=== PATIENT | female | born 1970 ===

== ENCOUNTER 2025-05-16 02:51 | Emergency (ER) | payer OTHER, SELFPAY ==
--- NOTE | ~2025-05-16 | CT_ITS ---
CLINICAL HISTORY: Stroke Protocol CT angiography head and neck with contrast. 3D Postprocessing. Comparison: None provided Findings: Aortic arch and cervical great vessels are patent with no aneurysm, dissection, hemodynamically significant stenoses, or occlusion. Occluded M1 segment of the right middle cerebral artery, Axial image 109, series 12. There is distal reconstitution of the M2 and M3 segments. Intracranial arteries are otherwise patent. No aneurysm, dissection, hemodynamically significant stenoses, or occlusion. No abnormal intracranial enhancement. The visualized thyroid gland is unremarkable. No cervical mass or fluid collection. Lung apices clear. Incidentally, there are findings of tracheobronchomalacia. No acute fracture. IMPRESSION: Occluded M1 segment of the right middle cerebral artery. Recommend neuro interventional consultation. Otherwise patent remainder of the intracranial and neck arterial circulation. This document has been electronically signed by: Abel Valencia MD on 05/16/2025 04:28:24
--- NOTE | ~2025-05-16 | CT_ITS ---
CLINICAL HISTORY: Stroke Protocol - LT SIDE WEAKNESS, AMS, PT UNABLE TO HOLD STILL FOR IMAGING CT head without contrast Comparison: None provided Findings: No intra-axial mass, midline shift, hydrocephalus, or acute hemorrhage. No significant atrophy-like change or white matter disease. There is a mucous retention cyst in the left maxillary sinus. The remainder of the sinuses are clear. Mastoid air cells are clear. The orbits are within normal limits. No skull fracture. IMPRESSION: 1. No acute intracranial findings. This document has been electronically signed by: Abel Valencia MD on 05/16/2025 03:45:51
--- NOTE | 2025-05-16 03:01 | ECG_ITS ---
Test Reason : stroke protocol Blood Pressure : */* mmHG Vent. Rate : 97 BPM Atrial Rate : 97 BPM P-R Int : 188 ms QRS Dur : 90 ms QT Int : 392 ms P-R-T Axes : 61 8 66 degrees QTcB Int : 497 ms Normal sinus rhythm Nonspecific T wave abnormality Prolonged QT Abnormal ECG No previous ECGs available Referred By: Gumaro Lora Electronically Signed By: BISI STEVEN MD
[2025-05-16 03:02] VITALS: BMI 35.7
[2025-05-16 03:05] VITALS: BP 151/92; PULSE 100; RESP 15; TEMP 36.2; O2SAT 100; BMI 35.7
[2025-05-16 03:11] LABS: Prothrombin Time Whole Bld POC 12.6 sec (11.1-13.5); ~PT, ~INR - Anti Coag Clinic 1.1 (0.9-1.1)
[2025-05-16 03:13] LABS: Glucose, Whole Blood 130 mg/dL (60-115)
--- NOTE | 2025-05-16 03:29 | ED_ITS ---
HPI - Neuro Symptoms/Deficit General Chief Complaint: Stroke Stated Complaint: AMS/ jerky movements Time Seen by Provider: 05/16/25 03:04 Source: family and EMS Mode of arrival: EMS Limitations: altered mental status History of Present Illness ED Provider: Gumaro SZYMANSKI HPI Narrative: 54-year-old female presenting via EMS for evaluation of acute change in mental status. The patient is nonverbal upon arrival to the ED, unable to provide a reliable HPI. The patient's is present in the ED and reports patient was last seen well at her baseline at 00:40 when they were walking down the hallway to go to bed. The patient reportedly then got up to attempt to a crying baby, family recognized baby was still crying and went to check on patient, found the patient altered with reported slurred incomprehensible speech and activated EMS. EMS reports patient has been nonverbal since their arrival. Related Data Allergies Allergy/AdvReac Type Severity Reaction Status Date / Time meperidine (From Demerol) Allergy Unknown Verified 05/16/25 04:01 Review of Systems 2 Review of Systems: Yes all other systems are reviewed and are negative [facility] Social History Social History Use of substances other than those prescribed or required for medical reasons: No Any prior treatment program specific to substance use: No Advance Directives: No Advance Directives Information Provided: Yes Physical Exam 2 Vital Signs: Vital Signs: Last Vital Signs Temp 97.2 F 05/16/25 05:00 Pulse 91 05/16/25 05:00 Resp 15 05/16/25 05:00 BP 140/87 H 05/16/25 05:00 Pulse Ox 100 05/16/25 05:00 O2 Del Method Room Air 05/16/25 05:00 O2 Flow Rate 2 05/16/25 05:00 BMI result Body Mass Index 35.7 CONSTITUTIONAL: The patient appears acutely ill. Vital signs as documented. HEAD: Atraumatic, normocephalic. EYES: EOMs do not cross midline to the left, but no forced deviation/gaze, pupils equal and appropriately reactive to light and accommodation, conjunctiva clear, no exudate. ENT: Nares patent, no discharge. Airway patent, no audible stridor, visible mucosa is pink and moist without noted lesions. NECK: Trachea is midline, no obvious masses or gross abnormalities. CHEST: Symmetric movement, normal appearance. LUNGS: LS present and CTAB, no w/r/r. Non-labored work of breathing. CARDIAC: Regular Rhythm, S1/S2 appreciated, no murmurs, rubs or gallops. ABDOMEN: Abdomen soft no palpable masses or organomegaly. : Deferred. EXTREMITIES: No obvious acute injury or deformity noted. NEURO: Please refer to NIH stroke scale. Patient is nonverbal. SKIN: Warm, dry, color appropriate, normal turgor. No rashes noted. Medications Administered Discontinued Medications Generic Name Dose Route Start Last Admin Trade Name Freq PRN Reason Stop Dose Admin Iohexol 75 ml 05/16/25 03:51 05/16/25 03:51 Iohexol 350 Mg/Ml 100 Ml Infus..Btl IV 05/16/25 03:52 75 ml ONCE ONE Administration Ketamine HCl 46 mg 05/16/25 03:23 05/16/25 03:31 Ketamine Hcl/Ns 50 Mg/5 Ml Syringe IVPUSH 05/16/25 03:24 46 mg ONCE ONE Administration Ketamine HCl 50 mg 05/16/25 03:36 05/16/25 03:40 Ketamine Hcl/Ns 50 Mg/5 Ml Syringe IVPUSH 05/16/25 03:37 50 mg ONCE ONE Administration Ondansetron HCl 4 mg 05/16/25 03:28 05/16/25 03:31 Ondansetron Hcl 4 Mg/2 Ml Vial IVPUSH 05/16/25 03:29 4 mg ONCE ONE Administration Tenecteplase 24 mg 05/16/25 04:06 05/16/25 04:17 Tenecteplase 50 Mg/10 Ml Kit IVPUSH 05/16/25 04:07 24 mg ONCE ONE Administration Medical Decision Making Medical Decision Making MDM Narrative: 3:16 AM 05/16/2025 (Branden SZYMANSKI): 54-year-old female presenting via EMS for evaluation of acute change in mental status. The patient is nonverbal upon arrival to the ED, unable to provide a reliable HPI. The patient's is present in the ED and reports patient was last seen well at her baseline at 00:40 when they were walking down the hallway to go to bed. The patient reportedly then got up to attempt to a crying baby, family recognized baby was still crying and went to check on patient, found the patient altered with reported slurred incomprehensible speech and activated EMS. EMS reports patient has been nonverbal since their arrival. On exam patient appears to EOMs with inability to cross midline to the left, but no forced deviation to the right, there is right facial droop sparing the forehead, there is also flaccid left upper extremity without responsive to painful stimuli, left lower extremity demonstrates reflexive decorticate movement with painful stimuli, positive Babinski on left, patient's right upper and lower extremities demonstrate purposeful movement, however patient is globally aphasic. Stroke protocol activated and patient has been sent for CT dry scan. Of note the patient's denies any anticoagulation, history of GI bleed, recent blunt head trauma, car accident, or fall, history of previous stroke, or history of alcohol or substance abuse. Patient reportedly has a history of hyperlipidemia and hypertension. 3:30 AM 05/16/2025 (Branden SZYMANSKI): CT imaging was delayed by patient need for sedation x2. 3:52 AM 05/16/2025 (Branden SZYMANSKI): Patient has dry CT shows no evidence of acute intracranial hemorrhage. We will discuss TNK risks and benefits with and if amenable we will contact stroke Neurology. 4:11 AM 05/16/2025 (Branden SZYMANSKI): Case discussed with stroke neurologist Dr. Roberts, Dr. Roberts recommends administration of TNK given stroke severity. Patient's has been notified of risks and recommendation for TNK, patient's agreed to administer TNK. Patient will receive 24 mg TNK. 4:17 AM 05/16/2025 (Branden SZYMANSKI): TNK administered. 4:30 AM 05/16/2025 (Branden SZYMANSKI): [facility] called in with a critical finding on CTA, CTA shows large vessel occlusion of M1 segment of the right MCA, otherwise patent exam of the intracranial and neck arterial circulation. We will contact [facility] interventional Neurology. 4:32 AM 05/16/2025 (Branden SZYMANSKI): Repeat NIH stroke scale s/p TNK is unchanged, stroke scale scores at 20. 4:44 AM 05/16/2025 (Branden SZYMANSKI): Spoke with Dr. Ham from [facility] interventional Neurology who accepted the patient for transfer to the [facility] ED due to the presence of LVO. Ambulance has been requested for ALS transfer. At this time patient continues to protect her airway with adequate ventilation and SpO2 of 99% on 2 L nasal cannula. The patient does not require intubation/stabilization of airway prior to transfer. Admission/Observation Consideration of admission/observation: Escalation of care including admission/observation considered Consult Healthcare Provider Management of the patient was discussed with: [employer] Consultant Lab Data MDM Lab Attestation statement: I reviewed the patient's lab results. 05/16/25 03:20 05/16/25 03:20 Labs: Lab Results 05/16/25 05/16/25 05/16/25 Range/Units 03:02 03:04 03:20 WBC 9.1 (4.8-10.8) X10*3/uL RBC 4.61 (4.20-5.50) X10*6/uL Hgb 12.9 (12.0-16.0) g/dl Hct 39.0 (37.0-47.0) % MCV 84.6 (80.0-98.0) fL MCH 28.0 (27.0-33.0) pg MCHC 33.1 (31.0-35.0) g/dl RDW 12.7 (11.0-16.0) % Plt Count 178 (160-400) X10*3/uL MPV 11.7 (9.4-12.3) fL Immature Gran % (Auto) 0.4 (0.0-0.4) % Neut % (Auto) 40.8 L (45-73) % Lymph % (Auto) 45.5 H (20-40) % [place] % (Auto) 9.9 (2-11) % Eos % (Auto) 2.4 (0-4) % Baso % (Auto) 1.0 (0-2) % Lymph # (Auto) 4.1 (1.2-4.9) X10*3/uL [place] # (Auto) 0.9 (0.1-1.2) X10*3/uL Eos # (Auto) 0.2 (0.0-0.4) X10*3/uL Baso # (Auto) 0.1 (0.0-0.2) X10*3/uL Abs Immat Gran (auto) 0.04 H (0.00-0.03) X10*3/uL Absolute Neuts (auto) 3.7 (2.0-8.3) x10*3/uL Absolute Nucleated RBC 0.000 (0.0-0.012) X10*3/uL Nucleated RBC % (auto) 0.0 (0.0-0.2) /100WBC PT (11.2-13.5) SEC Whole Blood PT 12.6 (11.1-13.5) sec INR (0.9-1.1) Whole Blood INR 1.1 (0.9-1.1) APTT (26.7-34.1) SEC Sodium 142 (135-145) mmol/L Potassium 3.8 (3.3-5.1) mmol/L Chloride 106 (96-108) mmol/L Carbon Dioxide 27 (22-29) mmol/L Anion Gap 13 (12-20) BUN 27 H (9-16) mg/dL Creatinine 1.04 (0.5-1.4) mg/dL Estim Creat Clear Calc 68.1 Estimated GFR 55 POC Glucose 130 H (60-115) mg/dL Random Glucose 127 H (60-115) mg/dL Lactic Acid (0.5-2.0) mmol/L Calcium 9.6 (8.4-10.2) mg/dL Magnesium 2.4 (1.6-2.6) mg/dL Troponin I High Sens < 2.7 (<3.5-17.0) ng/L Triglycerides 126 (<150) mg/dL Cholesterol 274 H (<200) mg/dL LDL Cholesterol, Calc 201 H (<100) mg/dL HDL Cholesterol 48 (>40) mg/dL Lipase 21 (8-78) U/L Salicylates (15-30) mg/dL Acetaminophen (<30) mcg/mL Ethyl Alcohol < 10 mg/dL 05/16/25 Range/Units 03:51 WBC (4.8-10.8) X10*3/uL RBC (4.20-5.50) X10*6/uL Hgb (12.0-16.0) g/dl Hct (37.0-47.0) % MCV (80.0-98.0) fL MCH (27.0-33.0) pg MCHC (31.0-35.0) g/dl RDW (11.0-16.0) % Plt Count (160-400) X10*3/uL MPV (9.4-12.3) fL Immature Gran % (Auto) (0.0-0.4) % Neut % (Auto) (45-73) % Lymph % (Auto) (20-40) % [place] % (Auto) (2-11) % Eos % (Auto) (0-4) % Baso % (Auto) (0-2) % Lymph # (Auto) (1.2-4.9) X10*3/uL [place] # (Auto) (0.1-1.2) X10*3/uL Eos # (Auto) (0.0-0.4) X10*3/uL Baso # (Auto) (0.0-0.2) X10*3/uL Abs Immat Gran (auto) (0.00-0.03) X10*3/uL Absolute Neuts (auto) (2.0-8.3) x10*3/uL Absolute Nucleated RBC (0.0-0.012) X10*3/uL Nucleated RBC % (auto) (0.0-0.2) /100WBC PT 12.9 (11.2-13.5) SEC Whole Blood PT (11.1-13.5) sec INR 1.1 (0.9-1.1) Whole Blood INR (0.9-1.1) APTT 26.9 (26.7-34.1) SEC Sodium (135-145) mmol/L Potassium (3.3-5.1) mmol/L Chloride (96-108) mmol/L Carbon Dioxide (22-29) mmol/L Anion Gap (12-20) BUN (9-16) mg/dL Creatinine (0.5-1.4) mg/dL Estim Creat Clear Calc Estimated GFR POC Glucose (60-115) mg/dL Random Glucose (60-115) mg/dL Lactic Acid 1.3 (0.5-2.0) mmol/L Calcium (8.4-10.2) mg/dL Magnesium (1.6-2.6) mg/dL Troponin I High Sens (<3.5-17.0) ng/L Triglycerides (<150) mg/dL Cholesterol (<200) mg/dL LDL Cholesterol, Calc (<100) mg/dL HDL Cholesterol (>40) mg/dL Lipase (8-78) U/L Salicylates < 5.0 L (15-30) mg/dL Acetaminophen < 3 (<30) mcg/mL Ethyl Alcohol mg/dL Independent Interpretation I performed an independent interpretation of an: EKG (EKG shows sinus rhythm with a rate of 97, no evidence of acute ischemia, no ST elevation, no ectopy. QTC mildly prolonged at 497. No old for comparison.) Radiology Impression Discussion of test interpretation with radiology: I have reviewed the radiologist's reading. Radiologist Impression: CT head without contrast Comparison: None provided Findings: No intra-axial mass, midline shift, hydrocephalus, or acute hemorrhage. No significant atrophy-like change or white matter disease. There is a mucous retention cyst in the left maxillary sinus. The remainder of the sinuses are clear. Mastoid air cells are clear. The orbits are within normal limits. No skull fracture. IMPRESSION: 1. No acute intracranial findings. This document has been electronically signed by: Abel Valencia MD on 05/16/2025 03:45:51 CT angiography head and neck with contrast. 3D Postprocessing. Comparison: None provided Findings: Aortic arch and cervical great vessels are patent with no aneurysm, dissection, hemodynamically significant stenoses, or occlusion. Occluded M1 segment of the right middle cerebral artery, Axial image 109, series 12. There is distal reconstitution of the M2 and M3 segments. Intracranial arteries are otherwise patent. No aneurysm, dissection, hemodynamically significant stenoses, or occlusion. No abnormal intracranial enhancement. The visualized thyroid gland is unremarkable. No cervical mass or fluid collection. Lung apices clear. Incidentally, there are findings of tracheobronchomalacia. No acute fracture. IMPRESSION: Occluded M1 segment of the right middle cerebral artery. Recommend neuro interventional consultation. Otherwise patent remainder of the intracranial and neck arterial circulation. This document has been electronically signed by: Abel Valencia MD on 05/16/2025 04:28:24 External Record Review External record reviewed: Outpatient record Attestation Attending Attestation: I personally evaluated this patient with the [facility] and performed a substantive portion of the visit including all aspects of the medical decision making. ?Reviewed and agree with documented PA assessment and plan. Patient will be transferred to [facility] for neuro interventional treatment for right M1 MCA embolic stroke status post TNK administration.? Patient remains hemodynamically stable, resting and comfortable at this time. NIH Stroke Scale Time: 03:30 Level of Consciousness: Responds only with reflex motor or autonomic effects, or unresponsive Level of Consciousness Questions: Answers neither question correctly Level of Consciousness Commands: Performs neither task correctly Best Gaze: Partial gaze palsy Visual: No visual loss Facial Palsy: Minor paralyis Motor Arm (Right): No drift Motor Arm (Left): No movement Motor Leg (Right): No drift Motor Leg (Left): Some effort against gravity Limb Ataxia: Absent Sensory: Normal Best Language: Mute, global aphasia Dysarthia: Severe dysarthria Extinction and Inattention: No abnormality Score: 20 Critical Care Time Critical Care Time Critical Care Time: Yes Total Critical Care Time: 90 Attestation: Time is exclusive of separately billable procedures. Time includes: direct patient care, patient reassessment, coordination of patient care, interpretation of data (laboratory data, pulse oximetry, arterial blood gases and chest xrays), review of patient's medical records, medical consultation and documentation of patient care. Procedures excluded from critical care time: central intravenous line placement and electrocardiography. Discharge Plan Discharge Clinical Impression: Acute ischemic right MCA stroke Patient Disposition: [facility] Transfer Details: [facility] ER, accepting MD Dr. Ham (Interventional Neurology) Discharge Date/Time: 05/16/25 06:26 Print Language: [place]
[2025-05-16 03:31] LABS: MANUAL DIFF FLAG NO
[2025-05-16] MEDS: Ketamine HCl/NS 50 MG/5 ML SYRINGE 46 MG IVPUSH (03:31)
[2025-05-16 03:34] LABS: Hematocrit 39.0 % (37.0-47.0); Hemoglobin 12.9 g/dl (12.0-16.0); Imm Gran Abs Auto 0.04 X10*3/uL (0.00-0.03); Imm Gran Pct Auto 0.4 % (0.0-0.4); Lymphocytes Absolute Auto 4.1 X10*3/uL (1.2-4.9); Mean Corpuscular HGB Conc 33.1 g/dl (31.0-35.0); Mean Corpuscular Hemoglobin 28.0 pg (27.0-33.0); Mean Corpuscular Volume 84.6 fL (80.0-98.0); NRBC Abs Auto 0.000 X10*3/uL (0.0-0.012); NRBC Pct Auto 0.0 /100WBC (0.0-0.2); Platelet Count 178 X10*3/uL (160-400); Red Blood Count 4.61 X10*6/uL (4.20-5.50); White Blood Count 9.1 X10*3/uL (4.8-10.8)
[2025-05-16] MEDS: Ketamine HCl/NS 50 MG/5 ML SYRINGE IVPUSH (03:40)
[2025-05-16] MEDS: iohexoL 350 MG/ML 100 ML INFUS..BTL 75 ML IV (03:51)
[2025-05-16 03:56] LABS: Anion Gap 13 (12-20); Blood Urea Nitrogen 27 mg/dL (9-16); Calcium 9.6 mg/dL (8.4-10.2); Carbon Dioxide 27 mmol/L (22-29); Chloride 106 mmol/L (96-108); Cholesterol 274 mg/dL (<200); Creatinine Clr Calc Pharmacy 68.1; Estimated Glomerular Filt Rate 55; HDL Cholesterol 48 mg/dL (>40); Lipase 21 U/L (8-78); Magnesium 2.4 mg/dL (1.6-2.6); Potassium 3.8 mmol/L (3.3-5.1); Sodium 142 mmol/L (135-145); Triglycerides 126 mg/dL (<150); Troponin-I High Sensitivity < 2.7 ng/L (<3.5-17.0)
[2025-05-16 04:12] LABS: INTERNATIONAL NORM RATIO 1.1 (0.9-1.1); Prothrombin Time 12.9 SEC (11.2-13.5)
[2025-05-16 04:15] VITALS: BP 158/81; PULSE 92; RESP 14; O2SAT 100
[2025-05-16 04:15] LABS: Partial Thromboplastin Time 26.9 SEC (26.7-34.1)
[2025-05-16 04:21] LABS: Stroke Lab Use COMPLETE
[2025-05-16 04:27] LABS: Acetaminophen LAB < 3 mcg/mL (<30); Salicylate < 5.0 mg/dL (15-30)
[2025-05-16 04:30] VITALS: BP 155/106; PULSE 92; RESP 21; O2SAT 100
[2025-05-16 04:45] VITALS: BP 140/84; PULSE 92; RESP 14; TEMP 36.3; O2SAT 99
[2025-05-16 05:00] VITALS: BP 140/87; PULSE 91; RESP 15; TEMP 36.2; O2SAT 100
== END 2025-05-16 06:26 | disposition short-term general hospital (02) ==
PROVIDERS: Physician Assistant; Emergency Provider Emergency Medicine
DX: I63.511 Cerebral infarction due to unspecified occlusion or stenosis of right middle cerebral artery (principal); R41.82 Altered mental status, unspecified; R29.720 NIHSS score 20; I10 Essential (primary) hypertension; E78.5 Hyperlipidemia, unspecified
CPT/HCPCS: 36415; 37195; 70450; 70496; 70498; 80048; 80061; 80143; 80179; 80307; 82947; 83605; 83690; 83735; 84484; 85025; 85610; 85730; 93005; 96374; 96375; 99284; 99291; 99292; J2405; J3101; Q9967

== ENCOUNTER → 2025-05-16 03:01 | Outpatient (BNV) | payer OTHER, SELFPAY | PROVIDERS: Emergency Provider Emergency Medicine; Visit Provider Internal Medicine Cardiovascular Disease | DX: R94.31 Abnormal electrocardiogram [ECG] [EKG] (principal); I63.9 Cerebral infarction, unspecified | CPT/HCPCS: 93010 ==

== ENCOUNTER → 2025-05-16 03:01 | Outpatient (BNV) | payer MEDICAID, SELFPAY | PROVIDERS: Emergency Provider Emergency Medicine; Visit Provider Radiology Diagnostic Radiology | DX: I66.01 Occlusion and stenosis of right middle cerebral artery (principal); R41.82 Altered mental status, unspecified; J34.1 Cyst and mucocele of nose and nasal sinus | CPT/HCPCS: 70450; 70496; 70498 ==